=== PATIENT | female | born 1945 | race Native Hawaiian/Other Pacific Islander ===

== ENCOUNTER 2017-07-13 12:39 | Outpatient (CLI) | payer OTHER | END 2017-07-13 22:19 | disposition home or self-care (01) | LOC: MAMMO 12:39 | DX: Z12.31 Encounter for screening mammogram for malignant neoplasm of breast (principal) ==

== ENCOUNTER 2018-03-12 13:27 | Outpatient (CLI) | payer OTHER | END 2018-03-12 19:57 | disposition home or self-care (01) | LOC: RAD 13:27 | DX: M25.562 Pain in left knee (principal); M79.671 Pain in right foot ==

== ENCOUNTER 2018-04-17 09:25 | Outpatient (CLI) | payer OTHER | END 2018-04-17 22:05 | disposition home or self-care (01) | LOC: RAD 09:25 | DX: Z13.820 Encounter for screening for osteoporosis (principal); Z78.0 Asymptomatic menopausal state ==

== ENCOUNTER 2019-01-03 08:52 | Outpatient (CLI) | payer OTHER | END 2019-01-03 20:15 | disposition home or self-care (01) | LOC: MAMMO 08:52 | DX: Z12.31 Encounter for screening mammogram for malignant neoplasm of breast (principal) ==

== ENCOUNTER 2019-07-30 11:32 | Outpatient (CLI) | payer OTHER | END 2019-07-30 19:34 | disposition home or self-care (01) | LOC: RAD 11:32 | DX: Z01.818 Encounter for other preprocedural examination (principal) ==

== ENCOUNTER 2020-06-02 13:52 | Outpatient (CLI) | payer OTHER | END 2020-06-02 23:01 | disposition home or self-care (01) | LOC: MAMMO 13:52 | PROVIDERS: ATTEND Registered Nurse | DX: Z12.31 Encounter for screening mammogram for malignant neoplasm of breast (principal) ==

== ENCOUNTER 2020-07-17 10:53 | Outpatient (CLI) | payer OTHER | END 2020-07-17 21:51 | disposition home or self-care (01) | LOC: RESP 10:53 | PROVIDERS: ATTEND Physician Assistant | DX: R06.09 Other forms of dyspnea (principal); R05 Cough; R06.2 Wheezing; R60.0 Localized edema ==

== ENCOUNTER 2021-04-09 12:20 | Outpatient (CLI) | payer OTHER | END 2021-04-09 19:38 | disposition home or self-care (01) | LOC: LABW 12:20 | PROVIDERS: ATTEND Family Medicine | DX: H11.30 Conjunctival hemorrhage, unspecified eye (principal) | CPT/HCPCS: 36415; 85302; 85305; 85610; 85730 ==

== ENCOUNTER 2021-05-10 08:39 | Outpatient (CLI) | payer OTHER ==
[2021-05-10 10:09] LABS: PARTIAL THROMBOPLASTIN TIME 26.5 SECONDS (24.5-33.6)
== END 2021-05-10 19:16 | disposition home or self-care (01) ==
LOC: LABW 08:39
PROVIDERS: ATTEND Physician Assistant
DX: H11.30 Conjunctival hemorrhage, unspecified eye (principal)
CPT/HCPCS: 36415; 85302; 85305; 85610; 85730

== ENCOUNTER 2021-07-13 14:42 | Outpatient (CLI) | payer OTHER | END 2021-07-13 19:22 | disposition home or self-care (01) | LOC: MAMMO 14:42 | PROVIDERS: ATTEND Physician Assistant | DX: Z12.31 Encounter for screening mammogram for malignant neoplasm of breast (principal) ==

== ENCOUNTER 2021-10-12 09:45 | Outpatient (CLI) | payer OTHER | END 2021-10-12 18:56 | disposition home or self-care (01) | LOC: US 09:45 | PROVIDERS: ATTEND Internal Medicine Gastroenterology | DX: K74.69 Other cirrhosis of liver (principal); R60.0 Localized edema ==

== ENCOUNTER 2021-11-18 09:13 | Outpatient (CLI) | payer OTHER ==
[2021-11-18 10:16] LABS: PLATELET COUNT 79 K/uL (152-353)
[2021-11-18 10:34] LABS: POTASSIUM 3.6 mmol/L (3.6-5.2)
== END 2021-11-18 19:14 | disposition home or self-care (01) ==
LOC: LABW 09:13
PROVIDERS: ATTEND Internal Medicine Pulmonary Disease
DX: D68.59 Other primary thrombophilia (principal); R16.1 Splenomegaly, not elsewhere classified; R05.3 Chronic cough; J45.40 Moderate persistent asthma, uncomplicated
CPT/HCPCS: 36415; 80053; 82103; 82785; 85027

== ENCOUNTER → 2022-09-01 | Outpatient (CLI) | payer OTHER | LOC: MAMMO 08-30 15:30 | PROVIDERS: ATTEND Physician Assistant | DX: Z12.31 Encounter for screening mammogram for malignant neoplasm of breast (principal) ==

== ENCOUNTER 2023-01-30 10:27 | Outpatient (CLI) | payer OTHER | END 2023-01-30 23:03 | disposition home or self-care (01) | LOC: US 10:27 | PROVIDERS: ATTEND Internal Medicine Gastroenterology | DX: K74.69 Other cirrhosis of liver (principal) ==

== ENCOUNTER 2023-07-19 10:01 | Outpatient (CLI) | payer OTHER | END 2023-07-19 19:03 | disposition home or self-care (01) | LOC: US 10:01 | PROVIDERS: ATTEND Internal Medicine Gastroenterology | DX: K74.69 Other cirrhosis of liver (principal) ==